=== PATIENT | female | born 1985 | race Caucasian/White ===

== ENCOUNTER → 2017-04-16 | Outpatient (CLI) | payer SELFPAY | LOC: LAB 15:58 | PROVIDERS: ATTEND Family Medicine | DX: O20.0 Threatened abortion (principal) | CPT/HCPCS: 36415; 84702 ==

== ENCOUNTER → 2017-04-24 | Outpatient (CLI) | payer SELFPAY | LOC: LAB 08:00 | PROVIDERS: ATTEND Family Medicine | DX: O03.9 Complete or unspecified spontaneous abortion without complication (principal) | CPT/HCPCS: 36415; 86850; 86900; 86901; J2790 ==

== ENCOUNTER 2018-02-16 00:23 | Inpatient (IN) ==
[2018-02-16] MEDS ORDERED: Lidocaine 1% 10 MG/ML - 20 ML VIAL SUBCUT PRN (00:29)
[2018-02-16] MEDS ORDERED: LIDOCAINE W/ SODIUM BICARB 0.5 ML SYR SUBD PRN (00:29)
[2018-02-16] MEDS ORDERED: ONDANSETRON 4 MG/2 ML VIAL IVP PRN ×2 (00:29→16:02)
[2018-02-16] MEDS ORDERED: CefOXitin Inj 2 GM in Sodium Chloride 0.9% 100 ML IV PRN (00:29)
[2018-02-16] MEDS ORDERED: Naloxone Inj 0.01 MG in Normal Saline Flush 1 ML IVP PRN (00:29)
[2018-02-16] MEDS ORDERED: NALOXONE 0.4 MG/1 ML VIAL IVP PRN (00:29)
[2018-02-16] MEDS ORDERED: TERBUTALINE SULFATE 1 MG/1 ML SDV SUBCUT PRN (00:29)
[2018-02-16] MEDS ORDERED: MISOPROSTOL 200 MCG TABLET RECTAL PRN (00:29)
[2018-02-16] MEDS ORDERED: Nalbuphine Inj 20 MG/ML Ampule IVP PRN ×2 (00:29→16:02)
[2018-02-16] MEDS ORDERED: Carboprost Inj 250 MCG/ML AMP IM PRN (00:29)
[2018-02-16] MEDS ORDERED: CALCIUM CARBONATE 500 MG (TUMS) CHEWABLE TABLET PO PRN ×2 (00:29→16:02)
[2018-02-16] MEDS ORDERED: Famotidine Inj 20 MG in Normal Saline Flush 10 ML IVP PRN ×4 (00:29)
[2018-02-16] MEDS ORDERED: diphenhydrAMINE 50 MG/1 ML VIAL IVP PRN ×2 (00:29→16:02)
[2018-02-16] MEDS ORDERED: LIDOCAINE HCL 2 % 10 ML JELLY URO-JECT TOPICAL PRN ×2 (00:29→16:02)
[2018-02-16] MEDS ORDERED: ePHEDrine Inj 5 MG in Normal Saline Flush 1 ML IVP PRN (00:29)
[2018-02-16] MEDS ORDERED: METHYLERGONOVINE MALEATE 0.2 MG/1 ML VIAL IM PRN (00:29)
[2018-02-16] MEDS ORDERED: BUTORPHANOL TARTRATE 2 MG/1 ML VIAL IVP PRN (00:29)
[2018-02-16] MEDS ORDERED: Phenylephrine Inj 50 MCG in Normal Saline Flush 0.5 ML IVP PRN (00:29)
[2018-02-16] MEDS ORDERED: Metoclopramide Inj 10 MG/2 ML VIAL IV PRN (00:29)
[2018-02-16] MEDS ORDERED: NORMAL SALINE 10 ML SYRINGE FLUSH IVP PRN ×2 (00:29→16:02)
[2018-02-16] MEDS ORDERED: CITRIC ACID/SODIUM CITRATE 30 ML CUP PO PRN (00:29)
[2018-02-16] MEDS ORDERED: OXYTOCIN 10 UNIT/1 ML IM PRN (00:29)
[2018-02-16] MEDS ORDERED: Oxytocin 20 Units + LR 20 UNIT/1,000 ML BAG IV SCH ×3 (00:30→16:02)
[2018-02-16] MEDS: Lactated Ringers-OB Dept 1,000 ML PRIMARY IV SCH ×3 (00:30→13:06)
[2018-02-16 00:56] LABS: Hematocrit [HCT] 39.6 % (37.0-47.0); Hemoglobin [HGB] 13.9 g/dL (12.0-16.0); MEAN CORPUSCULAR HEMOGLOBIN 29.3 PG (27-31); MEAN CORPUSCULAR HGB CONC 35.1 g/dL (33-37); MEAN CORPUSCULAR VOLUME 83.4 FL (81-99); MEAN PLATELET VOLUME 10.2 FL (7.4-12.2); RED BLOOD COUNT 4.75 10^6/uL (4.20-5.40)
[2018-02-16] MEDS: fentaNYL Inj 100 MCG/2 ML VIAL IV PRN ×2 (13:01→14:15)
[2018-02-16] MEDS ORDERED: DIPH,PERTUSS,TET(ADACEL) VAC/PF 0.5 ML (Tdap) IM ONE (16:02)
[2018-02-16] MEDS ORDERED: BENZOCAINE/MENTHOL SPRAY 56 GM BOTTLE TOPICAL PRN (16:02)
[2018-02-16] MEDS ORDERED: GLYCERIN/WITCH HAZEL 1 BOX TOPICAL PRN (16:02)
[2018-02-16] MEDS ORDERED: diphenhydrAMINE 25 MG CAPSULE PO PRN (16:02)
[2018-02-16] MEDS ORDERED: Ondansetron ODT Tab 4 MG TAB PO PRN (16:02)
[2018-02-16] MEDS ORDERED: ACETAMINOPHEN 325 MG TABLET PO PRN (16:02)
[2018-02-16] MEDS ORDERED: HYDROcodone-APAP 5 MG -325 MG TABLET PO PRN (16:02)
[2018-02-16] MEDS ORDERED: LANOLIN HPA 40 GM TUBE TOPICAL PRN (16:02)
[2018-02-16] MEDS ORDERED: RHO(D) IMMUNE GLOBULIN 1500 UNIT(300 mcg)SYRIN IM PRN (18:04)
[2018-02-16] MEDS: IBUPROFEN 800 MG TABLET PO PRN (18:34)
[2018-02-16] MEDS: DOCUSATE 100 MG CAPSULE PO SCH (21:40)
[2018-02-17 04:42] VITALS: RESP 18
[2018-02-17 05:28] LABS: Hematocrit [HCT] 34.5 % (37.0-47.0); MEAN CORPUSCULAR HEMOGLOBIN 29.9 PG (27-31); MEAN CORPUSCULAR HGB CONC 34.8 g/dL (33-37); MEAN CORPUSCULAR VOLUME 85.8 FL (81-99); MEAN PLATELET VOLUME 10.6 FL (7.4-12.2); RED BLOOD COUNT 4.02 10^6/uL (4.20-5.40)
[2018-02-17] MEDS ORDERED: Prenatal Multivitamin Tab 1 TAB TAB PO SCH (09:00)
[2018-02-17] MEDS: IBUPROFEN 800 MG TABLET PO PRN (09:24)
[2018-02-17] MEDS: DOCUSATE 100 MG CAPSULE PO SCH (09:25)
[2018-02-17 10:32] VITALS: BP 112/62; TEMP 97.7; O2SAT 98
--- NOTE | 2018-02-28 21:08 | OB.DEL.SUM ---
Delivery Note Delivery Summary: Pt is a 32 yo G4 now P3, who was admitted early this morning for elective induction secondary to suspected macrosomia, but actually turned out to be in labor with cervical change on her own. She underwent amniotomy this morning, with return of meconium-stained fluid. Her cervix at the time was 4/60/-2. She was 6 cm at 1230. The pt then had a very quick active phase and was complete at 1358. She began pushing a short time later and delivered a viable female over a second degree right mediolateral episiotomy (anesthetized first with 1% lidocaine) due to a very tight perineum and large baby. Time of delivery was 1413. Delivery presentation was PENNIE. There was no shoulder dystocia, though the baby was noted to have very broad shoulders. The nose and mouth were suctioned with the bulb suction and the cord was clamped and cut. The baby was handed off to the waiting nurses. She was vigorously crying from the time of delivery on. Cord blood and cord gases were obtained. The placenta delivered spontaneously and intact, with a 3 vessel cord, at 1420. 20 mU of pitocin were infused until the pt's IV began leaking. With fundal massage, her uterus firmed up nicely with very minimal bleeding. No further pitocin was given. Attention was then turned to the pt's laceration, which was repaired in the normal fashion with 3- 0 vicryl rapide suture. There was excellent hemostasis. A rectal exam at the conclusion of the suturing confirmed no aberrently placed sutures. Apgars were 8 at 1 minute and 9 at 5 minutes. Baby weighed 8#6oz. EBL 400 cc. Both mom and baby tolerated delivery well and are in stable condition at this time.
--- NOTE | 2018-02-28 21:24 | OB.PROGRES ---
Subjective Post Op Day: 1 Pain Management: PO Real Catheter: No Flatus: Yes Diet: Regular Feeding Method: Exculsively Ambulating: Yes Concerns / Additional Information: Pt has no complaints. Objective - General General Appearance: POSITIVE: No Acute Distress, Cooperative - Cardiovacular Cardiovascular Exam: POSITIVE: RRR, No Murmur Edema: +1 Pedal Edema Extremities: Negative Cosmo's - Bilaterally - Respiratory Respiratory Exam: POSITIVE: Clear to Auscultation - Bilaterally, Breathing Non Labored - Abdomen Bowel Sounds: Present Assesstment / Plan (1) Status post vaginal delivery Status: Acute Assessment / Plan: -routine cares. -breast feeding going well. -rh negative--needs rhogam. -rubella immune. -pt requesting discharge home later today.
== END 2018-02-17 15:55 | disposition home or self-care (01) | DRG 775 ==
LOC: OBIP 00:23
PROVIDERS: ADMIT Family Medicine; ATTEND Family Medicine